=== PATIENT | female | born 1945 | race Caucasian/White ===

== ENCOUNTER → 2016-03-30 | Day surgery (SDC) | payer MEDICARE, MEDICAID ==
--- NOTE | 2016-03-25 16:49 | Pre-Procedure Note/Attestation ---
Pre-Procedure Note/Attestation Complete Prior to Procedure Planned Procedure: right Procedure Narrative: 1. CATARACT EXTRACTION WITH PHACO AND PC IOL IMPLANTATION, RIGHT EYE. Indications for Procedure Pre-Operative Diagnosis: 1. CATARACT ,RIGHT EYE. Attestation I attest that I discussed the nature of the procedure; its benefits; risks and complications; and alternatives (and the risks and benefits of such alternatives ), prior to the procedure, with the patient (or the patient's legal sales representative metals). I attest that, if there was a reasonable possibility of needing a blood transfusion, the patient (or the patient's legal sales representative metals) was given the [facility] standardized written summary, pursuant to the [place] Blood Safety Act ([place] Health and Safety Code # 1645, as amended). I attest that I re-evaluated the patient just prior to the surgery and that there has been no change in the patient's H&P, except as documented below: SOCRATES BOWLING Mar 25, 2016 16:48
[~2016-03-30] VITALS: Ht 158 cm; Wt 60.8 kg
[2016-03-30] VITALS (8 sets, daily range): BP systolic 109–138; BP diastolic 62–75
[~2016-03-30] MED LIST: Akten 3.5% 1ml Btl ONE; BSS 15ml BTL ONE; BSS 500ml btl ONE; Dexamethasone 4mg/ml vial ONE; Diclofenac Sod 0.1% Op Soln ONE; DiphenhydrAMINE 50mg/ml Inj IVP PRN; EPINEPHrine 1mg/1ml Amp ONE; Gatifloxacin Opth Solution 0.5% ONE; LR 1000ml 1,000 ML IVLG SCH; LR 1000ml ONE; Lidocaine 1% MPF 10mg/ml 5ml ONE; Midazolam 2mg/2ml Inj ONE; NS Irrig 1000ml ONE; Phenylephrine 10% Opth Soln 5ml ONE; Povidone-Iodine 5% opth solution ONE; Propofol 10mg/ml 20ml IV ONE; Sodium Hyaluronate 10 mg/ml 0.85ml ONE; Sterile Water Irrig 1000ml IRRIG ONE; Tropicamide 1% Opth Soln ONE; VITAMIN B-121000 MCG PO; acetaZOLAMIDE 125mg tab ORAL ONE; fentaNYL 100 mcg/2 mL IV ONE; fentaNYL 100 mcg/2 mL IV PRN
[2016-03-30] MEDS: Phenylephrine 10% Opth Soln 5ml RIGHT EYE SCH ×3 (07:28→07:46)
[2016-03-30] MEDS: Diclofenac Sod 0.1% Op Soln RIGHT EYE SCH ×3 (07:28→07:47)
[2016-03-30] MEDS: Akten 3.5% 1ml Btl RIGHT EYE SCH ×3 (07:28→07:48)
[2016-03-30] MEDS: Tropicamide 1% Opth Soln RIGHT EYE SCH ×3 (07:28→07:46)
[2016-03-30] MEDS: Gatifloxacin Opth Solution 0.5% RIGHT EYE SCH ×3 (07:29→07:48)
--- NOTE | 2016-03-30 08:47 | Anethesia Preoperative Eval ---
Anesthesia Pre-op PMH/ROS General Date of Evaluation: Mar 30, 2016 Time of Evaluation: 08:22 Anesthesiologist: Tori ASA Score: ASA 2 Mallampati Score Class I : Soft palate, uvula, fauces, pillars visible Class II: Soft palate, uvula, fauces visible Class III: Soft palate, base of uvula visible Class IV: Only hard plate visible Mallampati Classification: Class II Surgeon: Hari Diagnosis: R eye cataract Surgical Procedure: R eye cataract extraction with IOL Anesthesia History: none Family History: no anesthesia problems Allergies: Coded Allergies: No Known Allergies (Unverified , 03/25/16) Medications: see eMAR Past Medical History Cardiovascular: Reports: HTN - mild, Denies: CAD, CT, arrhythmia, other, valve dz Pulmonary: Denies: COPD, SAGE, asthma, other Gastrointestinal/Genitourinary: Reports: GERD, Denies: CRI, ESRD, other Neurologic/Psychiatric: Denies: CVA, TIA, dementia, depression/anxiety, other Endocrine: Denies: DM, hypothyroidism, other, steroids HEENT: Reports: cataract (L), cataract (R), Denies: IQUGMIUT (L), IQUGMIUT (R), glaucoma, other Hematology/Immune: Reports: anemia - mild, Denies: DVT, bleeding disorder, other Musculoskeletal/Integumentary: Reports: DJD, Denies: DDD, OA, RA, edema, other PMH Narrative: as above PSxH Narrative: see chart Anesthesia Pre-op Phys. Exam Physician Exam Last Vital Signs Date Time Temp Pulse Resp B/P Pulse Ox O2 Delivery O2 Flow Rate FiO2 03/30/16 07:28 97.6 75 18 138/75 98 Room Air Constitutional: NAD Neurologic: CN 2-12 intact Cardiovascular: RRR, no M/R/G Respiratory: CTA Gastrointestinal: S/NT/ND Airway Exam Mallampati Score: Class II MO: limited Neck: stiff ROM: limited Teeth: intact Dentures: no lower, no upper Anesthesia Pre-op A/P Labs see chart Studies Pre-op Studies: EKG - NSR Risk Assessment & Plan Assessment: ASA 2 Plan: MAC Status Change Before Surgery: No Pre-Antibiotics Drug: none KRIS LINCOLN M.D. Mar 30, 2016 08:47
--- NOTE | 2016-03-30 09:18 | Brief Operative Note ---
Immediate Post Operative Note Operative Note Chief Complaint: Blurry visio, right eye, difficulty driving and reading Pre-op Diagnosis: 1. CATARACT ,RIGHT EYE. Procedure: Cataract extraction with phaco and PC IOL implantation, right eye Post-op Diagnosis: same as pre-op Surgeon: Socrates Noriega MD Kerrick Kleaner Operator: None Additional Surgeons: None Anesthesiologist: Dr. Valle Anesthesia: MAC Specimen: none Complications: none Condition: stable Estimated Blood Loss: none Drains: none Implant(s) used?: Yes - Monofocal PC IOL was implanted in the right eye without complication SOCRATES NORIEGA Mar 30, 2016 09:18
--- NOTE | 2016-03-30 09:39 | Immediate Post-Op Evaluation ---
Immediate Post-Op Evalulation Immediate Post-Op Evalulation Procedure: R eye cataract extraction with IOL Date of Evaluation: Mar 30, 2016 Time of Evaluation: 09:18 IV Fluids: 200 Blood Products: none Estimated Blood Loss: none Urinary Output: none Blood Pressure Systolic: 124 Blood Pressure Diastolic: 58 Pulse Rate: 72 Respiratory Rate: 20 O2 Sat by Pulse Oximetry: 99 Temperature (Fahrenheit): 97.4 Pain Score (1-10): 1 Nausea: No Vomiting: No Complications none Patient Status: awake, patent, none Hydration Status: adequate KRIS LINCOLN M.D. Mar 30, 2016 09:39
--- NOTE | 2016-03-30 10:39 | 48 Hour Post Anesthesia Eval ---
Post Anesthesia Evaluation Procedure: R eye cataract extraction with IOL Date of Evaluation: Mar 30, 2016 Time of Evaluation: 10:38 Blood Pressure Systolic: 138 0: 72 Pulse Rate: 64 Respiratory Rate: 20 Temperature (Fahrenheit): 97.6 O2 Sat by Pulse Oximetry: 98 Airway: patent Nausea: No Vomiting: No Pain Intensity: 2 Hydration Status: adequate Cardiopulmonary Status: stable Mental Status/LOC: patient returned to baseline Follow-up Care/Observations: n/a Post-Anesthesia Complications: none Follow-up care needed: ready to discharge KRIS LINCOLN M.D. Mar 30, 2016 10:39
--- NOTE | 2016-03-31 00:57 | Operative Note - Dictated ---
DATE OF OPERATION: 03/30/2016 FACILITY: [facility] SURGEON: Kristofer Noriega M.D. CANOE MAKER: None. ANESTHESIOLOGIST: Geovany Valle M.D. ANESTHESIA: Monitored anesthesia care (MAC). PREOPERATIVE DIAGNOSIS: Cataract, right eye. POSTOPERATIVE DIAGNOSIS: Cataract, right eye. SURGERY PERFORMED: Cataract extraction with phacoemulsification of posterior chamber intraocular lens implantation in the right eye. INDICATION FOR SURGERY: The patient is a 71-year-old lady with history of hypertension, osteoarthritis, anemia, and osteopenia. The patient is taking iron, warfarin, and Diovan for high blood pressure. She has had cataract surgery in the left eye in [place] and she is happy with the result. She is not allergic to any medications. She has no addiction to any addicting substances. She is complaining of blurry vision in the right eye. On examination of the right eye, the cornea is clear. Anterior chamber is clean and quiet. Pupillary reflex is normal. There is no RAPD. There is 4+ nuclear sclerosis and 2+ cortical cataract in the right eye. Funduscopy showed normal macula, normal optic disc, and normal periphery retina. To improve her vision in the right eye, the cataract has to be removed and posterior chamber intraocular lens has to be implanted. INFORMED CONSENT: The nature of the surgery, risks, benefits, alternatives, and potential complications were explained all in detail to the patient in her language, Farsi. The potential complications including, but not limited to bleeding, infection, posterior capsular rupture, lens subluxation, flat anterior chamber, iris prolapse, corneal edema, macular edema, wound leakage, retinal detachment, endophthalmitis, uveitis, loss of vision and even loss of the eye, were all explained in detail to the patient. The patient voiced understanding and accepted all the complications. The alternatives including accommodating lenses, multifocal lenses, toric lens, and conventional cataract surgery with limbal relaxing incision for treatment of astigmatism were all explained in detail to the patient in her language, Farsi. The patient voiced understanding. The patient decided to have only conventional cataract surgery in the right eye. She signed the consent form, which is in the chart. DESCRIPTION OF SURGERY AND FINDINGS: Following that, the patient was taken to the operation room in a stable condition. Akten 3.5% gel were applied to the conjunctiva of the right eye. IV sedation was given by the anesthesiologist, Dr. Valle. After adequate anesthesia and sedation had been achieved, the right eye was prepped and draped in sterile fashion for intraocular surgery. Following that, a speculum was placed in the right eye. Following that, using a Super Sharp knife a clear corneal side port was created. A 1% lidocaine without preservative (MPF) was injected into the anterior chamber. Viscoelastic agent Healon was injected into the anterior chamber. Following that, using a 2.8 mm keratome, a clear corneal temporal keratotomy was performed. Following that, viscoelastic agent was injected in to the anterior chamber again. Following that, vision blue was injected under the viscoelastic agent to stain the anterior capsule. Following that, a clear viscoelastic agent, Healon was injected into the anterior chamber. Following that, an anterior capsulotomy was performed in the fashion of capsulorrhexis beautifully under the viscoelastic agent. Following that, all viscoelastic agent was removed from the anterior chamber. Following that, with balanced salt solution, hydrodissection and hydrodelineation was performed and the nucleus was freed. Following that, viscoelastic agent was injected into the anterior chamber to protect the endothelium of the cornea. Following that, using the phacoemulsification machine in the fashion of horizontal chop, the nucleus was removed in toto. Following that, the cortical material was removed from the capsular bag . Following that, the capsular bag was polished. Following that, the capsular bag was filled with viscoelastic agent Healon. Following that, a +24.5 diopter ZCB00 foldable PCIOL with serial #[id number] was injected into the capsular bag. Using a Sinskey hook, the lens was manipulated and put in the proper position. Following that, the viscoelastic agent was removed from the anterior posterior part of the lens. Following that, the anterior chamber was filled with balanced salt solution and the wound was hydrated with balanced salt solution. The wound was checked for leakage, there was no leakage. Vigamox eye drops were applied to the conjunctiva of the right eye. The patient tolerated the surgery without complications. At the end of the surgery, the eye was patched with a clear sterile fenestrated shield. Following that, the patient was transferred to the recovery room. In the recovery room, 125 mg Diamox was given by mouth stat. Postoperative orders and directions were given to the patient. The patient was discharged home upon stabilization. The patient will be follow in my office tomorrow morning at 9 o'clock. Kristofer Noriega M.D. DR: MEL JOB#: [id number] CC:
--- NOTE | 2016-03-31 00:57 | Discharge Summary ---
DATE OF ADMISSION: 03/30/2016 DATE OF DISCHARGE: 03/30/2016 REASON FOR HOSPITALIZATION: Cataract right eye. SURGERY PERFORMED: Cataract extraction with phacoemulsification of posterior chamber intraocular lens implantation, right eye. CONDITION: Condition of the patient in the hospital, the patient tolerated the procedure without complications. The patient was stable at discharge. DISCHARGE MEDICATIONS: 1. Prednisolone 1% q.i.d., right eye. 2. Vigamox eyedrops one drop to right eye. 3. Acular one drop q.i.d., right eye. POSTOPERATIVE ORDERS: The patient has to rest at home. No bending. No lifting. No watching TV tonight. POSTOPERATIVE FOLLOWUP: The patient will be followed in my office tomorrow morning at 9 o'clock. Kristofer Noriega M.D. DR: MEL JOB#: [id number] CC:
== END | disposition home or self-care (01) ==
LOC: SUR 06:55
DX: H25.11 Age-related nuclear cataract, right eye (principal); H25.011 Cortical age-related cataract, right eye; M19.90 Unspecified osteoarthritis, unspecified site; D64.9 Anemia, unspecified; I10 Essential (primary) hypertension; K21.9 Gastro-esophageal reflux disease without esophagitis; M85.80 Other specified disorders of bone density and structure, unspecified site; Z79.01 Long term (current) use of anticoagulants; Z79.899 Other long term (current) drug therapy
CPT/HCPCS: 66984; 82962; J0171; J1100; J2250; J2704; J3010; J7120; V2632; 94003; 94150